=== PATIENT | male | born 1960 | race African-American/Black ===

== ENCOUNTER 2018-10-28 05:17 | Emergency (ER) | payer MEDICAID ==
[~2018-10-28] VITALS: Ht 190.5 cm; Wt 102.1 kg
== END 2018-10-28 07:11 | disposition home or self-care (01) ==
LOC: ED 05:17
DX: Z46.6 Encounter for fitting and adjustment of urinary device (principal); F17.200 Nicotine dependence, unspecified, uncomplicated
CPT/HCPCS: 99283

== ENCOUNTER 2018-10-28 13:12 | Emergency (ER) | payer MEDICAID ==
[~2018-10-28] VITALS: Ht 190.5 cm; Wt 102.1 kg
--- OUTSIDE RECORDS SUMMARY | 2018-10-28 13:30 | XMS ---
PreManage Notification: IRINA BARCENAS Security [employer] Events No recent Security Events currently on file CRITERIA MET - [facility] - 2 Visits in 30 Days CARE PROVIDERS There are no care providers on record at this time. Nicole has no Care Guidelines for this patient. [facility] V[facility] COUNT (12 MO.) [facility] T[facility] NOTE: Visits indicate total known visits. ED/C VISIT TRACKING (12 MO.) 10/28/2018 13:28 [facility] [place] TYPE: Emergency COMPLAINT: - FALL/POSS STROKE 10/28/2018 05:18 [facility] [place] TYPE: Emergency COMPLAINT: - CATH ISSUE INPATIENT VISIT TRACKING (12 MO.) No inpatient visits to display in this time frame [email or web address]
--- NOTE | 2018-10-29 21:32 | EKG ---
[facility] [address] [facility] [place] [address] Signed Normal sinus rhythm Minimal voltage criteria for LVH, may be normal variant Borderline ECG No previous ECGs available Confirmed by RACHEL HAYS MD ([id number]) on 10/29/2018 9:32:15 PM Electronically Signed By: RACHEL HAYS MD 10/29/18 2132 PATIENT NAME: RIINA BARCENAS Electrocardiogram DATE OF : 58 PHYSICIAN: RACHEL HAYS MD REPORT #: [id number] REPORT IS CONFIDENTIAL AND NOT TO BE RELEASED WITHOUT AUTHORIZATION
== END 2018-10-28 16:24 | disposition home or self-care (01) ==
LOC: ED 13:12
DX: G31.9 Degenerative disease of nervous system, unspecified (principal); F17.200 Nicotine dependence, unspecified, uncomplicated; Z86.73 Personal history of transient ischemic attack (TIA), and cerebral infarction without residual deficits
CPT/HCPCS: 70450; 71045; 80053; 85025; 93005; 93010; 99284-25; G0480